=== PATIENT | female | born 1940 | race Caucasian/White ===

== ENCOUNTER 2020-03-10 11:33 | Emergency (ER) | payer OTHER ==
[2020-03-10 11:45] VITALS: BMI 34.0
[2020-03-10 13:51] LABS: BASO % 0.6 % (0-2.0); EOS % 1.3 % (0-4.5); HEMATOCRIT 39.9 % (32.4-45.2); HEMOGLOBIN 13.2 GM/dL (10.7-15.3); MCH 28.8 pg (25.7-33.7); MEAN CELL VOLUME 87.4 fl (80-96); MEAN PLT VOLUME 9.1 fl (7.5-11.1); MONO % 6.4 % (3.8-10.2); NEUT % 73.7 % (42.8-82.8); PLATELET COUNT 252 K/MM3 (134-434); RBC 4.57 M/mm3 (3.60-5.2); RDW 14.8 % (11.6-15.6); WHITE BLOOD COUNT 7.6 K/mm3 (4.0-10.0)
[2020-03-10 14:15] LABS: CHLORIDE 102 mmol/L (98-107); POTASSIUM 4.5 mmol/L (3.5-5.1); SODIUM 138 mmol/L (136-145)
[2020-03-10 14:17] LABS: ANION GAP 3 MMOL/L (8-16); BLOOD UREA NITROGEN 24.4 mg/dL (7-18); CALCIUM 9.6 mg/dL (8.5-10.1); CO2 33 mmol/L (21-32); GLUCOSE,RANDOM 90 mg/dL (74-106)
[2020-03-10 14:20] LABS: CREATININE 0.6 mg/dL (0.55-1.3); SGOT/AST 16 U/L (15-37); SGPT/ALT 15 U/L (13-61)
[2020-03-10 14:22] LABS: BILIRUBIN,TOTAL 1.4 mg/dL (0.2-1); TOT PROT 6.7 g/dl (6.4-8.2)
[2020-03-10 14:24] LABS: ALK PHOS 67 U/L (45-117)
[2020-03-10 14:25] LABS: N-TERMINAL BNP 1214.5 pg/ml (5-450)
[2020-03-10 15:56] VITALS: BP 122/67; PULSE 85; TEMP 98.6
== END 2020-03-10 16:01 | disposition home or self-care (01) ==
LOC: JER 11:33
DX: R06.02 Shortness of breath (principal); J44.9 Chronic obstructive pulmonary disease, unspecified
CPT/HCPCS: 36415; 71045-TC-FY; 71250-TC; 80053; 82550; 83880; 84484; 85025; 99285-25; C9803; U0003